=== PATIENT | male | born 1965 | race Caucasian/White ===

== ENCOUNTER 2024-01-14 18:42 | Emergency (ER) | payer MEDICARE, SELFPAY ==
[2024-01-14 18:50] VITALS: BP 127/76; PULSE 59; RESP 17; TEMP 36.6; O2SAT 100
[2024-01-14 18:52] VITALS: BP 138/60; PULSE 56; O2SAT 99
--- NOTE | 2024-01-14 19:00 | ECG_ITS ---
Test Reason : AMS Blood Pressure : / mmHG Vent. Rate : 061 BPM Atrial Rate : 061 BPM P-R Int : 154 ms QRS Dur : 080 ms QT Int : 402 ms P-R-T Axes : 062 051 047 degrees QTc Int : 404 ms Normal sinus rhythm Cannot rule out Anterior infarct , age undetermined Abnormal ECG No previous ECGs available Referred By: Vera Lange Electronically Signed By:DUTCH POMPA MD
[2024-01-14 19:02] VITALS: BMI 24.2
[2024-01-14 19:20] LABS: MANUAL DIFF FLAG NO
[2024-01-14 19:22] LABS: Basophils Percent Auto 0.3 % (0-2); Eosinophils Absolute Auto 0.1 X10*3/uL (0.0-0.4); Eosinophils Percent Auto 1.6 % (0-4); Hematocrit 46.3 % (42.0-52.0); Hemoglobin 15.7 g/dl (14.0-18.0); Imm Gran Abs Auto 0.02 X10*3/uL (0.00-0.03); Imm Gran Pct Auto 0.3 % (0.0-0.4); Lymphocytes Absolute Auto 1.7 X10*3/uL (1.2-4.9); Lymphocytes Percent Auto 24.5 % (20-40); Mean Corpuscular HGB Conc 33.9 g/dl (31.0-36.0); Mean Corpuscular Hemoglobin 30.7 pg (27.0-33.0); Mean Corpuscular Volume 90.4 fL (80.0-98.0); Mean Platelet Volume 9.1 fL (9.4-12.4); Monocytes Absolute Auto 0.5 X10*3/uL (0.1-1.2); Neutrophils Absolute Auto 4.7 x10*3/uL (2.0-8.3); Neutrophils Percent Auto 66.3 % (45-73); Platelet Count 254 X10*3/uL (160-400); Red Blood Count 5.12 X10*6/uL (4.60-5.80); Red Cell Distribution Width 12.3 % (11.0-16.0)
[2024-01-14 19:28] LABS: Ammonia 19 umol/L (13-55)
[2024-01-14 19:30] LABS: INTERNATIONAL NORM RATIO 1.2 (0.9-1.1)
[2024-01-14 19:36] LABS: Alanine Aminotransferase 26 U/L (0-40); Albumin Level 4.8 g/dL (3.5-5.0); Alkaline Phosphatase 97 U/L (39-117); Anion Gap 13 (12-20); Aspartate Amino Transferase 25 U/L (5-37); Bilirubin Direct 0.2 mg/dL (0.0-0.5); Bilirubin Total 0.6 mg/dL (0.0-1.0); Blood Urea Nitrogen 22 mg/dL (9-16); Calcium 9.9 mg/dL (8.4-10.2); Carbon Dioxide 29 mmol/L (22-29); Chloride 104 mmol/L (96-108); Creatinine Clr Calc Pharmacy 71.4; Estimated Glomerular Filt Rate > 60; Glucose Random 116 mg/dL (60-115); Lipase 45 U/L (8-78); Magnesium 2.1 mg/dL (1.6-2.6); Potassium 3.9 mmol/L (3.3-5.1); Sodium 142 mmol/L (135-145); Total Protein 7.5 g/dL (6.5-8.0)
--- OUTSIDE RECORDS SUMMARY | 2024-01-14 19:39 | XMS_ITS | Summary of Care ---
Author Organization [facility] Address [address] [place] [address]- Encounter 03/09/16 - 03/20/16 [facility] [address] [place] [address]- [phone] Discharge Diagnosis: Anxiety Discharge Diagnosis: Closed fracture of distal fibula Discharge Diagnosis: GERD - Gastro-esophageal reflux disease Discharge Diagnosis: Spastic diplegia Discharge Diagnosis: Cerebral palsy Discharge Diagnosis: Depression Discharge Diagnosis: HTN - Hypertension Discharge Diagnosis: Gait abnormality Discharge Diagnosis: Hypokalemia Discharge Diagnosis: lONGSTANDING Paranoid delusionAL BEHAVIOR Attending Physician: Gala Huitron MD Vital Signs Most recent to oldest [Reference Range]: 1 2 3 Temperature Oral F [96.4-99.1 DegF] 97.6 DegF (03/20/16 5:35 AM) 98 DegF (03/19/16 9:00 PM) 98.1 DegF (03/19/16 2:23 PM) Peripheral Pulse Rate [60-100 bpm] 62 bpm (03/20/16 5:35 AM) 65 bpm (03/19/16 9:00 PM) 77 bpm (03/19/16 2:23 PM) Respiratory Rate [14-20 br/min] 18 br/min (03/20/16 5:35 AM) 18 br/min (03/19/16 9:00 PM) 20 br/min (03/19/16 2:23 PM) Blood Pressure [90-140/60-90 mmHg] 134/73mmHg (03/20/16 8:51 AM) 128/84mmHg (03/19/16 9:00 PM) Systolic Blood Pressure [90-140 mmHg] 120 mmHg (03/20/16 5:35 AM) Diastolic Blood Pressure [60-90 mmHg] 69 mmHg (03/20/16 5:35 AM) Extremity used to obtain blood pressure Right Arm (03/14/16 6:30 AM) Temperature Oral [36-37 DegC] 36 DegC (03/20/16 5:35 AM) 37 DegC (03/19/16 9:00 PM) 37 DegC (03/19/16 2:23 PM) Problem List Condition Effective Dates Status Health Status Inform ant Anxiety(Confirmed) Active Cerebral palsy(Confirmed) Active Depression(Confirmed) Active GERD - Gastro-esophageal ref lux disease(Confirmed) Active Impaired mobility(Confirmed) Active Left ankle closed fracture(Confirmed) Active Spastic diplegia(Confirmed) Active Allergies, Adverse Reactions, Alerts Substance Reaction Severity Status Milk gi diarrhea abdominal pain Severe Active Medications acetaminophen 325 mg oral tablet 650 mg, = 2 tab, Tab, Oral, q4hr PRN, Refills 0, Fever Start Date: 03/19/16 Status: Ordered acetaminophen 325 mg oral tablet 650 mg, = 2 tab, Tab, Oral, q4hr PRN, Refills 0, Mild pain Start Date: 03/19/16 Status: Ordered baclofen 10 mg oral tablet 5 mg, = 0.5 tab, Tab, Oral, TID PRN, Refills 0, spasm Start Date: 03/19/16 Status: Ordered bisacodyl 10 mg rectal suppository 10 mg, = 1 supp, Supp, CT, Daily PRN, Refills 0, Constipation Start Date: 03/19/16 Status: Ordered calcium carbonate 1250 mg (500 mg elemental calcium) oral tablet 1,250 mg, = 1 tab, Tab, Oral, BID, Refills 0 Start Date: 03/19/16 Status: Ordered ergocalciferol 50,000 intl units (1.25 mg) oral capsule 50,000 IntlUnit, = 1 cap, Cap, Oral, qSUN, Refills 0 Start Date: 03/19/16 Status: Ordered hydrochlorothiazide 25 mg oral tablet 25 mg, = 1 tab, Tab, Oral, Daily, Refills 0 Start Date: 03/19/16 Status: Ordered ibuprofen 600 mg oral tablet 600 mg, = 1 tab, Tab, Oral, q8hr PRN, Refills 0, Pain Start Date: 03/19/16 Status: Ordered Lexapro 10 mg oral tablet 15 mg, = 1.5 tab, Tab, Oral, QHS, Refills 0 Start Date: 03/19/16 Status: Ordered melatonin 3 mg oral tablet 3 mg, = 1 tab, Tab, Oral, QHS PRN, Refills 0, Insomnia Start Date: 03/19/16 Status: Ordered OLANZapine 5 mg oral tablet 10 mg, = 2 tab, Tab, Oral, QHS, Refills 0 Start Date: 03/19/16 Status: Ordered pantoprazole 20 mg oral delayed release tablet 40 mg, = 2 tab, Tab-DR, Oral, Before breakfast, 60 tab, Refills 0, Print Requisition, 0 Start Date: 03/19/16 Status: Ordered potassium chloride 10 mEq oral tablet, extended release 20 mEq, = 2 tab, Tab-ER, Oral, BID, 120 tab, Refills 0, Print Requisition, 0 Start Date: 03/19/16 Status: Ordered Results LABORATORY Most recent to oldest [Reference Range]: 1 2 3 White Blood Cell Count - QST [3.8-10.8 x10(3)/mcL] 4.2 x10(3)/mcL *NA* (03/16/16 6:00 AM) 6.2 x10(3)/mcL *NA* (03/10/16 6:00 AM) Red Blood Cell Count - QST [4.20-5.80 x10(6)/mcL] 4.46 x10(6)/mcL *NA* (03/16/16 6:00 AM) 4.73 x10(6)/mcL *NA* (03/10/16 6:00 AM) Hemoglobin - QST [13.2-17.1 g/dL] 14.1 g/dL *NA* (03/16/16 6:00 AM) 15.1 g/dL *NA* (03/10/16 6:00 AM) Hematocrit - QST [38.5-50.0 %] 40.8 % *NA* (03/16/16 6:00 AM) 43.0 % *NA* (03/10/16 6:00 AM) MCV - QST [80.0-100.0 fL] 91.5 fL *NA* (03/16/16 6:00 AM) 91.0 fL *NA* (03/10/16 6:00 AM) MCH - QST [27.0-33.0 pg] 31.7 pg *NA* (03/16/16 6:00 AM) 31.9 pg *NA* (03/10/16 6:00 AM) MCHC - QST [32.0-36.0 g/dL] 34.7 g/dL *NA* (03/16/16 6:00 AM) 35.0 g/dL *NA* (03/10/16 6:00 AM) RDW - QST [11.0-15.0 %] 12.7 % *NA* (03/16/16 6:00 AM) 13.1 % *NA* (03/10/16 6:00 AM) Platelet Count - QST [140-400 x10(3)/mcL] 217 x10(3)/mcL *NA* (03/16/16 6:00 AM) 206 x10(3)/mcL *NA* (03/10/16 6:00 AM) MPV - QST [7.5-11.5 fL] 7.6 fL *NA* (03/16/16 6:00 AM) 7.8 fL *NA* (03/10/16 6:00 AM) Absolute Neutrophils - QST [8836-7571 cells/mcL] 2318 cells/mcL *NA* (03/16/16 6:00 AM) 3677 cells/mcL *NA* (03/10/16 6:00 AM) Absolute Lymphocytes - QST [850-3900 cells/mcL] 1126 cells/mcL *NA* (03/16/16 6:00 AM) 1804 cells/mcL *NA* (03/10/16 6:00 AM) Absolute Monocytes - QST [200-950 cells/mcL] 643 cells/mcL *NA* (03/16/16 6:00 AM) 601 cells/mcL *NA* (03/10/16 6:00 AM) Absolute Eosinophils - QST [15-500 cells/mcL] 97 cells/mcL *NA* (03/16/16 6:00 AM) 105 cells/mcL *NA* (03/10/16 6:00 AM) Absolute Basophils - QST [0-200 cells/mcL] 17 cells/mcL *NA* (03/16/16 6:00 AM) 12 cells/mcL *NA* (03/10/16 6:00 AM) Neutrophils - QST 55.2 % *NA* (03/16/16 6:00 AM) 59.3 % *NA* (03/10/16 6:00 AM) Monocytes - QST 15.3 % *NA* (03/16/16 6:00 AM) 9.7 % *NA* (03/10/16 6:00 AM) Eosinophils - QST 2.3 % *NA* (03/16/16 6:00 AM) 1.7 % *NA* (03/10/16 6:00 AM) Basophils - QST 0.4 % 1 *NA* (03/16/16 6:00 AM) 0.2 % 2 *NA* (03/10/16 6:00 AM) Lymphocytes - QST 26.8 % *NA* (03/16/16 6:00 AM) 29.1 % *NA* (03/10/16 6:00 AM) Estimated Creatinine Clearance 76.59 mL/min (03/20/16 9:36 AM) 80.81 mL/min (03/19/16 10:00 AM) 80.07 mL/min (03/18/16 10:13 AM) Creatinine Level 1.15 mg/dL (03/20/16 6:00 AM) 1.09 mg/dL (03/19/16 6:00 AM) 1.10 mg/dL (03/18/16 5:00 AM) Sodium - QST [135-146 mmol/L] 138 mmol/L *NA* (03/20/16 6:00 AM) 138 mmol/L *NA* (03/19/16 6:00 AM) 137 mmol/L *NA* (03/18/16 5:00 AM) Potassium - QST [3.5-5.3 mmol/L] 4.0 mmol/L *NA* (03/20/16 6:00 AM) 3.6 mmol/L *NA* (03/19/16 6:00 AM) 3.6 mmol/L *NA* (03/18/16 5:00 AM) Chloride - QST [98-110 mmol/L] 101 mmol/L *NA* (03/20/16 6:00 AM) 101 mmol/L *NA* (03/19/16 6:00 AM) 99 mmol/L *NA* (03/18/16 5:00 AM) Carbon Dioxide - QST [20-31 mmol/L] 24 mmol/L *NA* (03/20/16 6:00 AM) 27 mmol/L *NA* (03/19/16 6:00 AM) 28 mmol/L *NA* (03/18/16 5:00 AM) Urea Nitrogen (BUN) - QST [7-25 mg/dL] 18 mg/dL *NA* (03/20/16 6:00 AM) 16 mg/dL *NA* (03/19/16 6:00 AM) 19 mg/dL *NA* (03/18/16 5:00 AM) BUN/Creatinine Ratio - QST [6-22] NOT APPLICABLE *NA* (03/20/16 6:00 AM) NOT APPLICABLE *NA* (03/19/16 6:00 AM) NOT APPLICABLE *NA* (03/18/16 5:00 AM) Creatinine - QST [0.70-1.33 mg/dL] 1.15 mg/dL 3 *NA* (03/20/16 6:00 AM) 1.09 mg/dL 4 *NA* (03/19/16 6:00 AM) 1.10 mg/dL 5 *NA* (03/18/16 5:00 AM) eGFR Non-Afr. Stateless - QST [> OR = 60 mL/min/1.73 m2] 74 mL/min/1.73 m2 *NA* (03/20/16 6:00 AM) 79 mL/min/1.73 m2 *NA* (03/19/16 6:00 AM) 78 mL/min/1.73 m2 *NA* (03/18/16 5:00 AM) eGFR - QST [> OR = 60 mL/min/1.73 m2] 86 mL/min/1.73 m2 *NA* (03/20/16 6:00 AM) 91 mL/min/1.73 m2 *NA* (03/19/16 6:00 AM) 90 mL/min/1.73 m2 *NA* (03/18/16 5:00 AM) Glucose - QST [65-99 mg/dL] 101 mg/dL 12 *HI* (03/20/16 6:00 AM) 90 mg/dL 13 *NA* (03/19/16 6:00 AM) 92 mg/dL 14 *NA* (03/18/16 5:00 AM) Calcium - QST [8.6-10.3 mg/dL] 9.8 mg/dL 6 *NA* (03/20/16 6:00 AM) 9.5 mg/dL 7 *NA* (03/19/16 6:00 AM) 9.4 mg/dL 8 *NA* (03/18/16 5:00 AM) Prealbumin - QST [21-43 mg/dL] 33 mg/dL 10 *NA* (03/10/16 6:00 AM) Albumin - QST [3.6-5.1 g/dL] 4.6 g/dL 9 *NA* (03/10/16 6:00 AM) Magnesium - QST [1.5-2.5 mg/dL] 1.9 mg/dL 11 *NA* (03/18/16 5:00 AM) 1Result Comment: Lab test performed by: Lab Mnemonic: [employer] [address] [place] [address] DAIANA BARBA MD 2Result Comment: Lab test performed by: Lab Mnemonic: [employer] [address] [place] [address] DAIANA BARBA MD 3Result Comment: For patients >49 years of age, the reference limit for Creatinine is approximately 13% higher for people identified as -Stateless. 4Result Comment: For patients >49 years of age, the reference limit for Creatinine is approximately 13% higher for people identified as -Stateless. 5Result Comment: For patients >49 years of age, the reference limit for Creatinine is approximately 13% higher for people identified as -Stateless. 6Result Comment: Lab test performed by: Lab Mnemonic: [employer] [address] [place] [address] DAIANA BARBA MD 7Result Comment: Lab test performed by: Lab Mnemonic: [employer] [facility] [address] [place] [address] DAIANA BARBA MD 8Result Comment: Lab test performed by: Lab Mnemonic: [employer] [facility] [address] [place] [address] DAIANA BARBA MD 9Result Comment: Lab test performed by: Lab Mnemonic: [employer] [facility] [address] [place] [address] DAIANA BARBA MD 10Result Comment: Lab test performed by: Lab Mnemonic: [employer] [address] [address] MARY URRUTIA MD 11Result Comment: Lab test performed by: Lab Mnemonic: [employer] [facility] [address] [place] [address] DAIANA BARBA MD 12Result Comment: Fasting reference interval 13Result Comment: Fasting reference interval 14Result Comment: Fasting reference interval Immunizations No data available for this section Procedures No data available for this section Social History No data available for this section Assessment and Plan No data available for this section
--- OUTSIDE RECORDS SUMMARY | 2024-01-14 19:39 | XMS_ITS | Summary of Care ---
Author Organization [facility] Address [address] [place] [address]- Encounter 01/30/18 - 02/09/18 [facility] [address] [place] [address]- [phone] Encounter Diagnosis DEPRESSION(Discharge Diagnosis) - 01/30/18 WEAKNESS(Discharge Diagnosis) - 01/30/18 Cerebral palsy(Discharge Diagnosis) - 01/30/18 FALL(Discharge Diagnosis) - 01/30/18 Vertigo(Discharge Diagnosis) - 01/30/18 Anxiety(Discharge Diagnosis) - 01/30/18 Attending Physician: Abhishek Sherman MD Vital Signs Most recent to oldest [Reference Range]: 1 2 3 Temperature Oral F [96.4-99.1 DegF] 98.0 DegF (02/09/18 6:00 AM) 97.5 DegF (02/08/18 6:26 AM) 98.1 DegF (02/07/18 8:30 PM) Peripheral Pulse Rate [60-100 bpm] 67 bpm (02/09/18 6:00 AM) 65 bpm (02/08/18 6:26 AM) 67 bpm (02/07/18 8:30 PM) Respiratory Rate [14-20 br/min] 18 br/min (02/09/18 6:00 AM) 20 br/min (02/08/18 6:26 AM) 18 br/min (02/07/18 8:30 PM) Blood Pressure [90-140/60-90 mmHg] 110/74mmHg (02/09/18 6:00 AM) 128/85mmHg (02/07/18 8:30 PM) Systolic Blood Pressure [90-140 mmHg] 124 mmHg (02/08/18 6:26 AM) Diastolic Blood Pressure [60-90 mmHg] 88 mmHg (02/08/18 6:26 AM) Extremity used to obtain blood pressure Right Arm (02/08/18 6:26 AM) Left Arm (02/07/18 1:46 PM) Right Arm (02/06/18 2:40 PM) Cuff Size. Medium (02/08/18 6:26 AM) Large (02/07/18 1:46 PM) Temperature Oral [35.8-37.3 DegC] 36.7 DegC (02/09/18 6:00 AM) 36.4 DegC (02/08/18 6:26 AM) 36.3 DegC (02/07/18 1:46 PM) Problem List Condition Effective Dates Status Health Status Inform ant Anxiety(Confirmed) Active Cerebral palsy(Confirmed) Active Depression(Confirmed) Active FALL(Confirmed) 01/30/18 Active FH: Arthritis(Confirmed) Active GERD - Gastro-esophageal ref lux disease(Confirmed) Active Hearing loss(Confirmed) Active Impaired mobility(Confirmed) Active Left ankle closed fracture(Confirmed) Active Spastic diplegia(Confirmed) Active Vertigo(Confirmed) Active WEAKNESS(Confirmed) 01/30/18 Active Allergies, Adverse Reactions, Alerts Substance Reaction Severity Status Silicone Active Milk abdominal pain diarrhea gi Severe Active Medications acetaminophen 325 mg oral tablet 650 mg = 2 tab, Tab, Oral, q6hr PRN, 0 Refill(s), PAIN (Scale 1-10) Start Date: 02/09/18 Status: Ordered baclofen 10 mg oral tablet 10 mg = 1 tab, Tab, Oral, BID PRN, 30 tab, 0 Refill(s), Muscle spasms, Print Requisition Start Date: 02/09/18 Status: Ordered fluticasone 50 mcg/inh nasal spray 100 mcg, 2 spray, [place]-Nasal, Nasal, BID PRN, 1 bottle, 0 Refill(s), Allergy symptoms, Print Requisition Start Date: 02/09/18 Status: Ordered Lexapro 10 mg oral tablet 20 mg = 2 tab, Tab, Oral, QHS, 60 tab, 0 Refill(s), Print Requisition Start Date: 02/09/18 Status: Ordered loperamide 2 mg oral capsule 2 mg = 1 cap, Cap, Oral, q2hr PRN, 0 Refill(s), Diarrhea Start Date: 02/09/18 Status: Ordered LORazepam 1 mg oral tablet 1 mg = 1 tab, Tab, Oral, BID, 60 tab, 0 Refill(s), Print Requisition Start Date: 02/09/18 Status: Ordered melatonin 3 mg oral tablet 3 mg = 1 tab, Tab, Oral, QHS PRN, 0 Refill(s), Insomnia Start Date: 02/09/18 Status: Ordered OLANZapine 5 mg oral tablet 10 mg = 2 tab, Tab, Oral, QHS, 60 tab, 0 Refill(s), Print Requisition Start Date: 02/09/18 Status: Ordered Results LABORATORY Most recent to oldest [Reference Range]: 1 2 3 White Blood Cell Count - QST [3.8-10.8 x10(3)/mcL] 4.4 x10(3)/mcL *NA* (02/07/18 6:00 AM) 4.4 x10(3)/mcL *NA* (01/31/18 6:00 AM) Red Blood Cell Count - QST [4.20-5.80 x10(6)/mcL] 4.48 x10(6)/mcL *NA* (02/07/18 6:00 AM) 4.53 x10(6)/mcL *NA* (01/31/18 6:00 AM) Hemoglobin - QST [13.2-17.1 g/dL] 14.3 g/dL *NA* (02/07/18 6:00 AM) 14.2 g/dL *NA* (01/31/18 6:00 AM) Hematocrit - QST [38.5-50.0 %] 40.2 % *NA* (02/07/18 6:00 AM) 41.2 % *NA* (01/31/18 6:00 AM) MCV - QST [80.0-100.0 fL] 89.7 fL *NA* (02/07/18 6:00 AM) 90.9 fL *NA* (01/31/18 6:00 AM) MCH - QST [27.0-33.0 pg] 31.9 pg *NA* (02/07/18 6:00 AM) 31.3 pg *NA* (01/31/18 6:00 AM) MCHC - QST [32.0-36.0 g/dL] 35.6 g/dL *NA* (02/07/18 6:00 AM) 34.5 g/dL *NA* (01/31/18 6:00 AM) RDW - QST [11.0-15.0 %] 13.2 % *NA* (02/07/18 6:00 AM) 13.5 % *NA* (01/31/18 6:00 AM) Platelet Count - QST [140-400 x10(3)/mcL] 219 x10(3)/mcL *NA* (02/07/18 6:00 AM) 180 x10(3)/mcL *NA* (01/31/18 6:00 AM) MPV - QST [7.5-12.5 fL] 9.7 fL *NA* (02/07/18 6:00 AM) 9.6 fL *NA* (01/31/18 6:00 AM) Absolute Neutrophils - QST [3515-2348 cells/mcL] 1958 cells/mcL *NA* (02/07/18 6:00 AM) 2675 cells/mcL *NA* (01/31/18 6:00 AM) Absolute Lymphocytes - QST [850-3900 cells/mcL] 1703 cells/mcL *NA* (02/07/18 6:00 AM) 1148 cells/mcL *NA* (01/31/18 6:00 AM) Absolute Monocytes - QST [200-950 cells/mcL] 590 cells/mcL *NA* (02/07/18 6:00 AM) 484 cells/mcL *NA* (01/31/18 6:00 AM) Absolute Eosinophils - QST [15-500 cells/mcL] 119 cells/mcL *NA* (02/07/18 6:00 AM) 70 cells/mcL *NA* (01/31/18 6:00 AM) Absolute Basophils - QST [0-200 cells/mcL] 31 cells/mcL *NA* (02/07/18 6:00 AM) 22 cells/mcL *NA* (01/31/18 6:00 AM) Neutrophils - QST 44.5 % *NA* (02/07/18 6:00 AM) 60.8 % *NA* (01/31/18 6:00 AM) Monocytes - QST 13.4 % *NA* (02/07/18 6:00 AM) 11.0 % *NA* (01/31/18 6:00 AM) Eosinophils - QST 2.7 % *NA* (02/07/18 6:00 AM) 1.6 % *NA* (01/31/18 6:00 AM) Basophils - QST 0.7 % 1 *NA* (02/07/18 6:00 AM) 0.5 % 2 *NA* (01/31/18 6:00 AM) Lymphocytes - QST 38.7 % *NA* (02/07/18 6:00 AM) 26.1 % *NA* (01/31/18 6:00 AM) Estimated Creatinine Clearance 69.45 mL/min (02/07/18 1:32 PM) 72.99 mL/min (02/01/18 3:34 PM) 72.99 mL/min (02/01/18 3:19 PM) Creatinine Level 1.24 mg/dL (02/07/18 6:00 AM) 1.18 mg/dL (01/31/18 6:00 AM) Sodium - QST [135-146 mmol/L] 137 mmol/L *NA* (02/07/18 6:00 AM) 137 mmol/L *NA* (01/31/18 6:00 AM) Potassium - QST [3.5-5.3 mmol/L] 4.5 mmol/L *NA* (02/07/18 6:00 AM) 3.9 mmol/L *NA* (01/31/18 6:00 AM) Chloride - QST [98-110 mmol/L] 103 mmol/L *NA* (02/07/18 6:00 AM) 102 mmol/L *NA* (01/31/18 6:00 AM) Carbon Dioxide - QST [20-32 mmol/L] 26 mmol/L *NA* (02/07/18 6:00 AM) 27 mmol/L *NA* (01/31/18 6:00 AM) Urea Nitrogen (BUN) - QST [7-25 mg/dL] 12 mg/dL *NA* (02/07/18 6:00 AM) 11 mg/dL *NA* (01/31/18 6:00 AM) BUN/Creatinine Ratio - QST [6-22] NOT APPLICABLE *NA* (02/07/18 6:00 AM) NOT APPLICABLE *NA* (01/31/18 6:00 AM) Creatinine - QST [0.70-1.33 mg/dL] 1.24 mg/dL 3 *NA* (02/07/18 6:00 AM) 1.18 mg/dL 4 *NA* (01/31/18 6:00 AM) eGFR Non-Afr. [place] - QST [> OR = 60 mL/min/1.73 m2] 66 mL/min/1.73 m2 *NA* (02/07/18 6:00 AM) 71 mL/min/1.73 m2 *NA* (01/31/18 6:00 AM) eGFR - QST [> OR = 60 mL/min/1.73 m2] 77 mL/min/1.73 m2 *NA* (02/07/18 6:00 AM) 82 mL/min/1.73 m2 *NA* (01/31/18 6:00 AM) Glucose - QST [65-99 mg/dL] 93 mg/dL 5 *NA* (02/07/18 6:00 AM) 119 mg/dL 6 *HI* (01/31/18 6:00 AM) Calcium - QST [8.6-10.3 mg/dL] 9.1 mg/dL 7 *NA* (02/07/18 6:00 AM) 9.1 mg/dL 8 *NA* (01/31/18 6:00 AM) Prealbumin - QST [21-43 mg/dL] 24 mg/dL 9 *NA* (01/31/18 6:00 AM) Albumin - QST [3.6-5.1 g/dL] 4.1 g/dL 10 *NA* (01/31/18 6:00 AM) 1Result Comment: Lab test performed by: Lab Mnemonic: [employer] [address],[facility] [place] [address] MARY URRUTIA MD 2Result Comment: Lab test performed by: Lab Mnemonic: [employer] [address],[facility] [place] [address] MARY URRUTIA MD 3Result Comment: For patients >49 years of age, the reference limit for Creatinine is approximately 13% higher for people identified as -Honduran. 4Result Comment: For patients >49 years of age, the reference limit for Creatinine is approximately 13% higher for people identified as -Honduran. 5Result Comment: Fasting reference interval 6Result Comment: Fasting reference interval For someone without known diabetes, a glucose value between 100 and 125 mg/dL is consistent with prediabetes and should be confirmed with a follow-up test. 7Result Comment: Lab test performed by: Lab Mnemonic: [employer] [address] [address] MARY URRUTIA MD 8Result Comment: Lab test performed by: Lab Mnemonic: [employer] [facility] [address] [address] MARY URRUTIA MD 9Result Comment: Lab test performed by: Lab Mnemonic: [employer] [facility] [address] [address] MARY URRUTIA MD 10Result Comment: Lab test performed by: Lab Mnemonic: [employer] [address],[facility] [place] [address] MARY URRUTIA MD
--- OUTSIDE RECORDS SUMMARY | 2024-01-14 19:39 | XMS_ITS | Patient Health Record ---
Author Organization [facility] [place] Address [address] [place], [place] [id number] Care Team Providers Care Clinical Education Academic Coordinator Name Role Phone Myrna Griffin Primary Care Provider Unavailabl Lee Ann Jaineep Unavailable [phone] Family Medical, Maternity Unavailable Unavai lable ALLERGIES Allergen (clinical drug ingredient) Drug/Non Drug Allergy documented on EMR Reaction Allergy Type Onset Date Status Tape rash Drug Allergy Active REASON FOR REFERRAL No Information MEDICATIONS Medication SIG (Take, Route, Frequency, Duration) Notes Start Date End Date Status LaMICtal 150 MG 1 tablet Orally Once a day for 30 day(s) Active CPAP Auto 5-20cm/h20 as directed full fa ce mask nightly for 90 days Active Escitalopram Oxalate 20 MG 1 tablet Oral ly Once a day Active Omeprazole 20 MG 1 capsule 30 minutes before morning meal Orally Once a day Active OLANZapine 10 MG 1 tablet Orally Once a day Active Baclofen 10 MG 1 tablet Oral Twice a day as needed Active CPAP DX: KEMAR G47.33 as directed SETTIN GS: 5-20cm/h20 w/FFM, SIG DATE:12/06/2019 During sleep nightly for the treatment of sleep apnea 12/06/2019 Active Loperamide HCl 2 MG 1-2 capsules Orally Twice a day Active IMMUNIZATIONS Vaccine Route Administration Date Status Comme nts Flucelvax Quadrivelant (Medicare) Unknown 07/14/2019 Re fused SOCIAL HISTORY Sex Assigned At : Social History Observation Description Sex Assigned At Unknown PROBLEMS Problem Type ICD Code Onset Dates Problem Status W/U Status Risk SNOMED Code Notes Problem KEMAR (obstructive sleep apnea) (G47.33) Active confirmed 15687227 Problem Chronic fatigue (R53.82) Active confirmed 96071256 Problem GERD without esophagitis (K21.9) Active confirmed 876173790 Problem Benign essential HTN (I10) Active confirmed 5866016 Problem Hypersomnolence disorder (G47.10) Active confirmed 71293730 PLAN OF TREATMENT Pending Test Test Name Order Date COVID-19 PCR ([facility]) [id number] 12/22/2019 Insurance Providers Payer Name Payer Address Payer Phone Subscriber Number Group Number Insured Name Patient Relationship to Insured Coverage Start Date Coverage End Date [employer] [address] [place] [phone] [id number] Nic Hernandez Self - patient is the insured Medicaid [address] [id number] [id number] Nic Hernandez Self - patient is the insured MEDICAL (GENERAL) HISTORY Medical History History ICD Code cerebral palsy GERD Depression Vertigo anxiety arthritis KEMAR seizure disorder Surgical History Surgery Date(Month/Year) mastoid surgery bilateral leg surgeries
[2024-01-14 19:43] LABS: Troponin-I High Sensitivity 2.8 ng/L (<3.5-35.0)
[2024-01-14 20:02] LABS: Influenza A PCR NEGATIVE (Negative); Influenza B PCR NEGATIVE (Negative); Resp Syncy Virus RNA Qual PCR NEGATIVE (Negative); SARS COV2 PCR INHOUSE NEGATIVE (Negative)
--- NOTE | 2024-01-14 20:15 | PC.NURSE ---
Rcvd call from Shyanne RN from [facility]. Per Shyanne, pt sent in after having increasing altered mentation per facility provider, and Jan 10 ammmonia level of 42. Shyanne, however, is stating that pt behavior appears baseline for pt, and she has not noticed any increase in confusion. She also stated that pt family concurs about pt behaviors being consistent for pt. provider notified.
[2024-01-14 22:56] VITALS: BP 105/63; PULSE 53; RESP 17; O2SAT 99
[2024-01-15 03:00] VITALS: BP 124/71; PULSE 59; RESP 16; O2SAT 98
--- NOTE | 2024-01-15 04:45 | ED_ITS ---
HPI - General Adult General Chief complaint: Altered Mental Status Stated complaint: elevated ammonia levels, confusion Time Seen by Provider: 01/15/24 04:45 History of Present Illness ED Provider: Grace THAKUR narrative: The patient is a 58-year-old male with a history of cerebral palsy. He was sent to the emergency room from the [facility] for evaluation of a question of altered mental status and possibly an elevated ammonia level. The patient is apparently from [place], [place]. He seems to have a poor memory and can not tell me how long he has been at the psychiatric facility or how he came to be there. Apparently he had an ammonia level checked at the psychiatric facility a few days ago and it may have been slightly elevated. I do not find any history of liver disease. He has a clozapine allergies so I assume he has a history of significant psychiatric illness. The patient currently has no complaints. He denies headache, chest pain, shortness of breath, cough, sputum, abdominal pain, nausea, vomiting. There is no history of fever, sweats, chills. Patient says that he normally walks with a walker because of a cerebral palsy. The patient does not currently feel suicidal. Related Data Allergies Allergy/AdvReac Type Severity Reaction Status Date / Time clozapine Allergy Anaphylaxis Verified 01/14/24 19:04 Review of Systems 2 Review of Systems: Yes all other systems are reviewed and are negative [facility] Social History Social History Alcohol intake: former Use of substances other than those prescribed or required for medical reasons: No Advance Directives: No Advance Directives Information Provided: No Do you have a plan to hurt others: No Plan Physical Exam ED Vital Signs: Vital Signs - 24 hr 01/14/24 18:50 01/14/24 22:56 01/15/24 03:00 Temperature 97.8 F Pulse Rate 59 53 59 Respiratory Rate 17 17 16 Blood Pressure 127/76 105/63 124/71 Pulse Oximetry 100 99 98 Oxygen Delivery Method Room Air Room Air Room Air 01/15/24 05:05 01/15/24 05:32 Temperature 98.1 F Pulse Rate 73 73 Respiratory Rate 18 18 Blood Pressure 132/73 132/73 Pulse Oximetry 100 100 Oxygen Delivery Method Room Air Room Air BMI result Body Mass Index 24.2 Const Other: The patient is a 58-year-old male who is chronically ill appearing and somewhat disheveled. He does not appear in acute distress. He was pleasant and cooperative. HENHI Other: Face is symmetrical. Mucus membranes moist. Eyes General: appearance normal, both eyes and all related structures Alignment and Position: alignment normal Eyelids: Yes eyelids normal Conjunctivae: conjunctivae normal Sclerae: sclerae normal Pupils: Equal, round and reactive pupils present EOM: EOMs intact bilaterally Neck Neck: Yes no JVD Resp Effort & Inspection: normal respiratory effort Auscultation: clear to auscultation bilaterally Cardio Rate: regular rate Rhythm: regular rhythm Heart sounds: S1 normal heart sound present and S2 normal heart sound present GI Other: Flat, soft, nontender Skin Other: Dry and unremarkable Neuro Other: The patient is awake and alert. He is poorly oriented. He knows that he is at a hospital. He knows that he is originally from [place], [place]. He is able to tell me that he has a history of cerebral palsy. However, he is not able to tell me his age or the correct month. He is pleasant and cooperative and follows commands. Cranial nerves seem grossly intact. He can move all extremities. There's no pronator or drifts. Finger nose is normal bilaterally. He is able to walk with a walker (he normally requires a walker). ?His gait is quite awkward, but I think this is his baseline gait. Cranial nerves: Yes Equal, round and reactive pupils present Extrem Other: The patient has been lower extremities. No calf swelling or tenderness. Medical Decision Making Medical Decision Making [facility] Narrative: The patient is a 58-year-old male who was sent to the emergency room from the psychiatric facility [facility]. Apparently there was concern about possible mental status changes and a possibly elevated ammonia level. As far as I can tell the patient has a history of cerebral palsy, but he does not seem to have a history of liver disease. Clozapine is listed as an allergy, which makes me think that he has a history of a psychotic disorder. Additional history is not available. ?The patient's vital signs are unremarkable. Labs are unremarkable. My impression is that the patient is probably at his baseline mental status. ?I don't find any neurological deficits on his exam that makes me think a CT scan of the brain would be useful. ?I think he may return to his facility. Lab Data 01/14/24 19:16 08/09/24 19:17 Labs: Lab Results 01/14/24 01/14/24 Range/Units 19:16 19:17 WBC 7.0 (4.8-10.8) X10*3/uL RBC 5.12 (4.60-5.80) X10*6/uL Hgb 15.7 (14.0-18.0) g/dl Hct 46.3 (42.0-52.0) % MCV 90.4 (80.0-98.0) fL MCH 30.7 (27.0-33.0) pg MCHC 33.9 (31.0-36.0) g/dl RDW 12.3 (11.0-16.0) % Plt Count 254 (160-400) X10*3/uL MPV 9.1 L (9.4-12.4) fL Immature Gran % (Auto) 0.3 (0.0-0.4) % Neut % (Auto) 66.3 (45-73) % Lymph % (Auto) 24.5 (20-40) % [place] % (Auto) 7.0 (2-11) % Eos % (Auto) 1.6 (0-4) % Baso % (Auto) 0.3 (0-2) % Lymph # (Auto) 1.7 (1.2-4.9) X10*3/uL [place] # (Auto) 0.5 (0.1-1.2) X10*3/uL Eos # (Auto) 0.1 (0.0-0.4) X10*3/uL Baso # (Auto) 0.0 (0.0-0.2) X10*3/uL Abs Immat Gran (auto) 0.02 (0.00-0.03) X10*3/uL Absolute Neuts (auto) 4.7 (2.0-8.3) x10*3/uL Absolute Nucleated RBC 0.000 (0.0-0.012) X10*3/uL Nucleated RBC % (auto) 0.0 (0.0-0.2) /100WBC PT 14.0 H (11.1-13.3) SEC INR 1.2 H (0.9-1.1) Sodium 142 (135-145) mmol/L Potassium 3.9 (3.3-5.1) mmol/L Chloride 104 (96-108) mmol/L Carbon Dioxide 29 (22-29) mmol/L Anion Gap 13 (12-20) BUN 22 H (9-16) mg/dL Creatinine 1.09 (0.5-1.4) mg/dL Estim Creat Clear Calc 71.4 Estimated GFR > 60 Random Glucose 116 H (60-115) mg/dL Calcium 9.9 (8.4-10.2) mg/dL Magnesium 2.1 (1.6-2.6) mg/dL Total Bilirubin 0.6 (0.0-1.0) mg/dL Direct Bilirubin 0.2 (0.0-0.5) mg/dL AST 25 (5-37) U/L ALT 26 (0-40) U/L Alkaline Phosphatase 97 (39-117) U/L Ammonia 19 (13-55) umol/L Troponin I High Sens 2.8 (<3.5-35.0) ng/L Total Protein 7.5 (6.5-8.0) g/dL Albumin 4.8 (3.5-5.0) g/dL Lipase 45 (8-78) U/L Influenza Type A (PCR) NEGATIVE (Negative) Influenza Type B (PCR) NEGATIVE (Negative) RSV RNA Qual (PCR) NEGATIVE (Negative) SARS-CoV-2 RNA (RT-PCR) NEGATIVE (Negative) Discharge Plan Discharge Clinical Impression: Cerebral palsy Patient Disposition: Home, Self-Care Additional Instructions: The ammonia level today is normal at 19. Other labs including a CBC and comprehensive metabolic panel are unremarkable. No clear acute process is identified in the emergency room today. Please continue current care. Return to the emergency room if worse. Referrals: Jasmin Gentile [facility] [Outside] Interventions: ED Discharge Assessment Last Done: 01/15/24 05:32 Discharge Date/Time: 01/15/24 05:33 Print Language: Kosovan
--- NOTE | 2024-01-15 04:58 | PC.NURSE ---
Spoke with RON Lewis on unit - pt being returned via EMS to facility.
[2024-01-15 05:05] VITALS: BP 132/73; PULSE 73; RESP 18; O2SAT 100
[2024-01-15 05:32] VITALS: BP 132/73; PULSE 73; RESP 18; TEMP 36.7; O2SAT 100
== END 2024-01-15 05:33 | disposition home or self-care (01) ==
PROVIDERS: Physician Assistant Medical; Emergency Provider Emergency Medicine
DX: G80.9 Cerebral palsy, unspecified (principal); R41.82 Altered mental status, unspecified; R79.1 Abnormal coagulation profile; Z03.818 Encounter for observation for suspected exposure to other biological agents ruled out
CPT/HCPCS: 0241U; 80048; 80076; 82140; 83690; 83735; 84484; 85025; 85610; 93005; 99285

== ENCOUNTER → 2024-01-14 19:00 | Outpatient (BNV) | payer MEDICARE, SELFPAY | PROVIDERS: Emergency Provider Emergency Medicine; Visit Provider Internal Medicine Cardiovascular Disease | DX: R00.1 Bradycardia, unspecified (principal) | CPT/HCPCS: 93010 ==

== ENCOUNTER 2024-01-17 04:17 | Emergency (ER) | payer MEDICARE, SELFPAY ==
--- NOTE | ~2024-01-17 | CT_ITS ---
EXAMINATION: CT HEAD WITHOUT CONTRAST CT CERVICAL SPINE WITHOUT CONTRAST CLINICAL INFORMATION: Pain. COMPARISON: None available. TECHNIQUE: Contiguous axial imaging was performed from the skull base to vertex without intravenous administration of contrast. This CT examination was performed using dose optimization techniques as appropriate, variously including the following: *Automated exposure control *Adjustment of mA and/or kV according to patient size (this includes techniques or standardized protocols for targeted exams where dose is matched to indication/reason for exam; i.e. extremities or head) *Use of iterative reconstruction technique DLP: 947 mGy-cm FINDINGS: 6 the lateral, third and fourth ventricles are normally outlined. The cortical sulci and basal cisterns are normally outlined as well. A left periventricular area of diminished attenuation left frontal lobe without mass effect. There is no acute territorial defect, hemorrhage or midline shift the extra-axial spaces are unremarkable. Calvarium/scalp: Intact. Maxillofacial sinuses and mastoids: Clear as visualized. Cervical spine: There is mild diffuse cervical disc degenerative change with minimal loss of disc space, endplate change and mild posterior osteophyte formation with mild diffuse facet osteoarthritic hypertrophic change with multilevel mild spinal canal and neuroforaminal narrowing. The bone mineralization is normal. There is no fracture. The soft tissues are unremarkable. The visualized upper lung tomlinson are clear. CT/CT cervical spine wo IV con IMPRESSION: 1. No acute intracranial process seen. 2. 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 3. No acute fracture, dislocation or subluxation in cervical spine. There is mild diffuse cervical spondylosis with multilevel mild spinal canal and neuroforaminal narrowing.
[2024-01-17 04:22] VITALS: BP 116/78; PULSE 78; O2SAT 98
[2024-01-17 04:36] VITALS: BP 122/82; PULSE 78; RESP 18; TEMP 36.6; O2SAT 98; BMI 24.2
--- NOTE | 2024-01-17 04:43 | PC.NURSE ---
1:1 sitter at bedside for safety - pt is from [place], on [address], denies SI
[2024-01-17 05:23] LABS: Basophils Percent Auto 0.4 % (0-2); Eosinophils Absolute Auto 0.1 X10*3/uL (0.0-0.4); Eosinophils Percent Auto 1.5 % (0-4); Hematocrit 42.3 % (42.0-52.0); Hemoglobin 14.6 g/dl (14.0-18.0); Imm Gran Abs Auto 0.01 X10*3/uL (0.00-0.03); Imm Gran Pct Auto 0.2 % (0.0-0.4); Lymphocytes Absolute Auto 1.2 X10*3/uL (1.2-4.9); Lymphocytes Percent Auto 26.2 % (20-40); MANUAL DIFF FLAG NO; Mean Corpuscular HGB Conc 34.5 g/dl (31.0-36.0); Mean Corpuscular Hemoglobin 31.2 pg (27.0-33.0); Mean Corpuscular Volume 90.4 fL (80.0-98.0); Monocytes Absolute Auto 0.4 X10*3/uL (0.1-1.2); Monocytes Percent Auto 9.2 % (2-11); Neutrophils Absolute Auto 2.9 x10*3/uL (2.0-8.3); Neutrophils Percent Auto 62.5 % (45-73); Platelet Count 191 X10*3/uL (160-400); Red Blood Count 4.68 X10*6/uL (4.60-5.80); Red Cell Distribution Width 12.2 % (11.0-16.0); White Blood Count 4.7 X10*3/uL (4.8-10.8)
[2024-01-17 05:34] LABS: Anion Gap 14 (12-20); Blood Urea Nitrogen 15 mg/dL (9-16); Calcium 9.6 mg/dL (8.4-10.2); Carbon Dioxide 26 mmol/L (22-29); Chloride 104 mmol/L (96-108); Creatinine Clr Calc Pharmacy 75.6; Estimated Glomerular Filt Rate > 60; Glucose Random 103 mg/dL (60-115); Potassium 3.8 mmol/L (3.3-5.1); Sodium 140 mmol/L (135-145)
[2024-01-17 05:40] VITALS: BP 128/97; PULSE 85; RESP 14; TEMP 36.5; O2SAT 93
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
--- NOTE | 2024-01-17 06:46 | PC.NURSE ---
Report called to RON Powell, [facility]. Facility ready to receive pt, pending ambulance transport.
[2024-01-17 08:45] VITALS: BP 112/67; PULSE 66; RESP 18; TEMP 36.4; O2SAT 100
[2024-01-17 09:07] VITALS: BP 112/67; PULSE 66; RESP 18; TEMP 36.4; O2SAT 100
== END 2024-01-17 09:11 ==
PROVIDERS: Emergency Provider Emergency Medicine
DX: S09.90XA Unspecified injury of head, initial encounter (principal); R51.9 Headache, unspecified; M54.2 Cervicalgia; Y04.8XXA Assault by other bodily force, initial encounter; Y93.89 Activity, other specified; Y92.098 Other place in other non-institutional residence as the place of occurrence of the external cause; Y99.8 Other external cause status
CPT/HCPCS: 36415; 70450; 72125; 80048; 85025; 99284; 99285